=== PATIENT | female | born 1980 | race Caucasian/White ===

== ENCOUNTER 2019-07-02 12:08 | Outpatient (REF) | payer MEDICAID, SELFPAY ==
[2019-07-06 13:24] LABS: Chlamydia Result Negative (Negative); GC Result Negative (Negative)
== END 2019-07-02 12:28 ==
LOC: NCHCN 12:08
PROVIDERS: PCP Nurse Practitioner Family; Visit Provider Nurse Practitioner Family
DX: Z11.3 Encounter for screening for infections with a predominantly sexual mode of transmission (principal)
CPT/HCPCS: 87491; 87591

== ENCOUNTER 2019-10-13 14:36 | Outpatient (REF) | payer MEDICAID, SELFPAY ==
[2019-10-16 13:59] LABS: Chlamydia Result Negative (Negative); GC Result Negative (Negative)
== END 2019-10-13 14:56 ==
LOC: NCHCN 14:36
PROVIDERS: PCP Nurse Practitioner Family; Visit Provider Nurse Practitioner Family
DX: N76.0 Acute vaginitis (principal); Z11.3 Encounter for screening for infections with a predominantly sexual mode of transmission
CPT/HCPCS: 87491; 87591; 87086; 87480; 87510; 87660